=== PATIENT | female | born 1975 | race Caucasian/White ===

== ENCOUNTER 2022-01-03 12:53 | Outpatient (CLI) | payer OTHER, SELFPAY ==
--- NOTE | 2022-01-03 13:00 | CRLHL7_ITS ---
For Patients: As a result of the Century Cures Act, medical imaging exams and procedure reports are released immediately into your electronic medical record. You may view this report before your referring provider. If you have questions, please contact your health care provider. Indication: Paresthesias of the skin. Technique: Noncontrast sagittal T1, axial FLAIR, T2, diffusion weighted sequences are provided. No comparisons. Findings: The ventricles, sulci and gyri are normal size, shape and contour for age. The midline structures are centrally located with no evidence of shift. There are no suspicious intra or extra-axial fluid collections. No region of restricted diffusion. Expected flow voids in the cavernous carotids and basilar artery. Impression: 1. No radiographic evidence of acute intracranial abnormalities. Dictated by Brad Vee MD @ 01/03/2022 2:15:24 PM (Electronically Signed)
== END 2022-01-03 12:54 | disposition home or self-care (01) ==
LOC: MRI 12:56
PROVIDERS: PCP Family Medicine; Visit Provider Family Medicine
DX: R20.2 Paresthesia of skin (principal)
CPT/HCPCS: 70551

== ENCOUNTER 2022-05-26 09:57 | Outpatient (CLI) | payer OTHER, SELFPAY ==
[2022-05-26 12:43] LABS: Cholesterol* 218 mg/dL (90-199)
[2022-05-26 12:44] LABS: HDL Cholesterol* 80 mg/dL (>=50); LDL Cholesterol Calculated 128 mg/dL (<100); Triglycerides* 51 mg/dL (40-149)
[2022-06-01 01:19] LABS: Vitamin D, 1,25-Dihydroxy 42.7 pg/mL (19.9-79.3)
== END 2022-05-26 09:58 | disposition home or self-care (01) ==
PROVIDERS: PCP Family Medicine; Visit Provider Obstetrics & Gynecology
DX: Z01.419 Encounter for gynecological examination (general) (routine) without abnormal findings (principal); M85.80 Other specified disorders of bone density and structure, unspecified site; Z13.6 Encounter for screening for cardiovascular disorders; Z13.29 Encounter for screening for other suspected endocrine disorder; Z11.3 Encounter for screening for infections with a predominantly sexual mode of transmission
CPT/HCPCS: 80061; 82652; 84443

== ENCOUNTER 2022-11-08 14:47 | Outpatient (CLI) | payer OTHER, SELFPAY ==
--- NOTE | 2022-11-08 15:00 | CRLHL7_ITS ---
For Patients: As a result of the Century Cures Act, medical imaging exams and procedure reports are released immediately into your electronic medical record. You may view this report before your referring provider. If you have questions, please contact your health care provider. BILATERAL SCREENING MAMMOGRAM WITH COMPUTER-AIDED DETECTION AND TOMOSYNTHESIS TECHNIQUE: CC and MLO views were obtained. These mammographic images have been obtained using full-field digital technique. These mammographic images were interpreted with the benefit of computer-aided detection. Breast Tomosynthesis was used in this interpretation. COMPARISON FILM: 11/04/21, 11/01/20, 10/28/19. FINDINGS: There are scattered areas of fibroglandular density IMPRESSION: There is no radiographic evidence for malignancy. ASSESSMENT: BI-RADS Category 2: Benign RECOMMENDATION: Routine screening mammogram in 1 year. A lay language report of this examination will be provided to the patient. Alex Castillo M.D. Diagnostic Radiologist [email or web address] JARON/Dictated by: Alex Castillo MD @ 11/09/2022 12:03:00 PM (Electronically Signed)
--- NOTE | 2022-11-08 15:30 | CRLHL7_ITS ---
For Patients: As a result of the Century Cures Act, medical imaging exams and procedure reports are released immediately into your electronic medical record. You may view this report before your referring provider. If you have questions, please contact your health care provider. DXA BONE MINERAL DENSITY STUDY Current height (in): 66.0. Weight (lb): 130.0. Menopause age: 47. Ethnicity: White. Reason for exam: Osteopenia. 1. Have you had a previous hip or vertebral fracture? No. 2. Have you had any fractures during your adult life which did not result from significant trauma (e.g., auto accident)? No. 3. Did either of your parents have a hip fracture? No. 4. Do you smoke? No. 5. Have you ever taken Glucocorticoids? No. 6. Do you have rheumatoid arthritis? No. 7. Do you have secondary osteoporosis? No. 8. Do you drink 3 or more alcoholic drinks per day? No. 9. Are you being treated for osteoporosis? No. 10. Have you ever taken any of the following medications: Actonel, Evista, Fosamax, Miacalcin, Reclast, Boniva, Forteo, HRT (i.e. estrogen/hormone therapy), Protelos, Prolia, Vitamin D, Calcium, other ??? please specify. ANSWER: Yes, vitamin D, calcium, omega 3. 11. Do you have any of the following medical conditions: Anorexia or bulimia, asthma or emphysema, end stage renal disease, hyperparathyroidism, any seizure disorders, cancer, inflammatory bowel diseases, hysterectomy, other ??? please specify. ANSWER: No. 12. What was your maximum height (inches)? 67. 13. Do you perform weight bearing exercise regularly? Yes. 14. Do you regularly consume dairy products? Yes. 15. Do you drink caffeinated beverages? Yes. 16. At what age did your period start? 12. 17. Are you premenopausal? No. 18. How many full term pregnancies have you had? 4. 19. Have you ever missed your period for more than 6 months in a row (not including or menopause)? No. TECHNIQUE: Bone mineral density study was performed using the [email or web address]. FINDINGS: The results of the study expressed as bone mineral density (BMD) are as follows: Lumbar spine L1to L4: BMD: 0.793 g/cm2. T-score: -2.3. Z-score: -1.7. Neck Left: BMD: 0.772 g/cm2. T-score: -0.7. Z-score: -0.1. Right: BMD: 0.795 g/cm2. T-score: -0.5. Z-score: 0.1. Total Left: BMD: 0.830 g/cm2. T-score: -0.9. Z-score: -0.5. Right: BMD: 0.866 g/cm2. T-score: -0.6. Z-score: -0.2. IMPRESSION: Osteopenia. *Comparison exams done prior to 11/2019 were performed on different unit, [employer]. COMPARISON: Compared with scan of 01/08/2020, the bone mineral density has increased by 2.7 percent at the spine and increased by 5.9 percent at the hip. FRAX 10-year Fracture Risk Major Osteoporotic Fracture: 2.9 percent Hip Fracture: 0.1 percent Reported Risk Factors: [place] () Neck BMD = 0.772, BMI = 21.0 Alex Castillo M.D. Diagnostic Radiologist [email or web address] Transcribed: 2:30 am DW/Dictated by: Alex Castillo MD @ 11/09/2022 8:24:00 AM (Electronically Signed)
== END 2022-11-08 14:48 | disposition home or self-care (01) ==
LOC: MAMMO 14:47
PROVIDERS: PCP Family Medicine; Visit Provider Obstetrics & Gynecology
DX: Z12.31 Encounter for screening mammogram for malignant neoplasm of breast (principal); M85.80 Other specified disorders of bone density and structure, unspecified site
CPT/HCPCS: 77063; 77067; 77080

== ENCOUNTER 2023-07-25 10:02 | Outpatient (CLI) | payer OTHER, SELFPAY ==
--- NOTE | 2023-07-25 10:15 | US_ITS ---
INDICATION: INGUINAL FULLNESS AND PAIN. COMPARISON: NONE. TECHNIQUE: GRAYSCALE AND COLOR DOPPLER ULTRASOUND OF THE INGUINAL SOFT TISSUES PERFORMED BILATERALLY WITH AND WITHOUT VALSALVA. FINDINGS: SMALL BILATERAL INGUINAL HERNIAS ARE PRESENT. THE FASCIAL DEFECT MEASURES APPROXIMATELY 5 X 6 MM ON THE LEFT AND 3 X 4 MM ON THE RIGHT. NO ABNORMAL VASCULARITY. NO FLUID COLLECTION OR MASS. IMPRESSION: SMALL BILATERAL INGUINAL HERNIAS.
== END 2023-07-25 10:03 | disposition home or self-care (01) ==
PROVIDERS: PCP Family Medicine; Visit Provider Surgery
DX: R10.31 Right lower quadrant pain (principal); K40.90 Unilateral inguinal hernia, without obstruction or gangrene, not specified as recurrent; R10.32 Left lower quadrant pain
CPT/HCPCS: 76857

== ENCOUNTER 2023-08-31 10:21 | Outpatient (CLI) | payer OTHER, SELFPAY | END 2023-08-31 10:22 | disposition home or self-care (01) | LOC: LKVREF 10:22 | PROVIDERS: PCP Family Medicine; Visit Provider Family Medicine | DX: Z83.3 Family history of diabetes mellitus (principal); Z13.228 Encounter for screening for other metabolic disorders | CPT/HCPCS: 80048 ==

== ENCOUNTER 2023-09-04 07:51 | Day surgery (SDC) | payer OTHER, SELFPAY ==
[2023-09-04] VITALS (13 sets, daily range): BP systolic 101–120; BP diastolic 58–84; PULSE 70–107; RESP 14–16; TEMP 36.6–36.7; O2SAT 96–100; BMI 20.8
[2023-09-04] MEDS: LACTATED RINGERS 1000 ML 1,000 ML 100 ML IV (08:10)
[2023-09-04 08:16] LABS: Ur HCG Qualitative* Negative (Negative)
[2023-09-04] MEDS: SODIUM CHLORIDE 0.9 % (FLUSH) 10 ML SYRINGE IVF (08:16)
[2023-09-04] MEDS: CEFAZOLIN 2 GM INJ IVP (09:25)
[2023-09-04] MEDS: BUPIVACAINE 0.25% 30 ML 15 ML INJECTION (09:36)
--- NOTE | 2023-09-04 09:38 | SUR.OPER ---
PATIENT QUESTIONS ANSWERED SATISFACTORILY PREOPERATIVELY. PATIENT BROUGHT TO OR #4 PER CART. Patient positioned supine on OR #4 bed. The perioperative team supported arms bilaterally on arm boards for the intubation. BILATERAL ARMS TUCKED IN A NEUTRAL, PADDED POSITION AT PT. SIDES W/DRAW SHEET. Final approval of positioning by surgeon.
--- NOTE | 2023-09-04 09:59 | W.ANESCHARGE ---
Anesthesia Charges Start Date/Time Anesthesia Start Date: 09/04/23 Anesthesia Start Time: 09:15 Stop Date/Time Anesthesia Stop Date: 09/04/23 Anesthesia Stop Time: 11:20
--- NOTE | 2023-09-04 11:23 | P.GSOP_ITS ---
Operative Note Date of procedure: 09/04/23 Pre-op diagnosis: 1. Symptomatic left inguinal hernia and minimally symptomatic right inguinal hernia. Post-op diagnosis: 1. Direct left inguinal hernia with cord lipoma and small indirect left inguinal hernia. 2. Direct right inguinal hernia. Type of Procedure: 1. Laparoscopic bilateral inguinal hernia repair with mesh. Indications: 48-year-old female was seen in clinic for evaluation of left inguinal pain with strenuous activity. The pain usually lasted for 1-2 days and then spontaneously resolved. She did not notice a bulge in the inguinal canals. On clinical exam she had a well-healed scar in the lower abdomen. With the patient standing up and doing Valsalva are there was symmetric protrusion of the abdominal wall overlying the inguinal canals on the left and right. There was no bulge palpated that was reducable. Patient was referred for an ultrasound of bilateral inguinal canals with Valsalva. The ultrasound showed small bilateral inguinal hernias left larger than the right. Given patient's symptoms and her ultrasound findings, a laparoscopic inguinal hernia repair was recommended. The procedure was discussed in detail. The risks associated procedure including infection, bleeding, nerve pain, and hernia recurrence were all discussed with the patient, and she agreed to proceed. Procedure Description: After discussing the risks and benefits of the procedure, the patient signed informed consent.? The operative site was marked and the patient was brought to the operating room and placed on the operating table in supine position.? Care was taken to pad the patient's pressure points.?? The patient was then intubated by anesthesia.?? The operative site was then prepped and draped in the usual sterile fashion.? A time-out was then performed. An infraumbilical skin incision was made with a scalpel and subcutaneous tissues were dissected with electrocautery. Anterior sheath was incised with electrocautery and rectus muscle was retracted laterally. A 12 mm spacemaker dissector system was introduced into the incision and advanced over the posterior sheath. Preperitoneal space was dissected with manually insufflating air under direct visualization. Once the tissues were dissected, the balloon was deflated and removed.? A laparoscopic balloon was placed into preperitoneal space and balloon was inflated. Preperitoneal space was insufflated with air. We then placed two 5 mm ports suprapubically under direct visualization. Minimal bleeding was identified upon examination of preperitoneal space. This was coming from muscle that was scarred to the abdominal wall most likely due to patient's repeated C-sections. A small venous branch adjacent to the right inferior epigastrics had slow oozing. This was clipped with a 5 mm clip. ? The preperitoneal tissues were bluntly dissected with graspers.? The pubic bone was identified and? cleared from preperitoneal tissue.? Moderate amount of scar tissue was noted on the right side and more scar on the left side. On the left side abdominal muscle was attached to the abdominal wall and we worked around this muscle scar to dissect the left side. I first started on the right side. Inferior epigastrics on the right?side were retracted towards the abdominal wall.??Tissues of the right preperitoneal space were dissected bluntly. Given patient's body habitus there was not an abundance of preperitoneal fat. The right round ligament was identified and was circumferentially dissected. The peritoneum on the right side was identified and there was no evidence of indirect inguinal hernia. There was a small direct inguinal hernia noted. The right round ligament was then clipped with 2 5 mm clips proximally and distally. The clips however did not go across the entire round ligament. Half of the round ligament was incised with hot scissors and additional clips were placed on the round ligament to prevent bleeding. The division of the round ligament was then completed with hot scissors.? When adequate space was developed for mesh placement, I then proceeded with dissection on the left side. Dissection in the left side was more difficult because the blunt dissection with the balloon did not create an adequate preperitoneal space. The preperitoneal space was dissected bluntly with Kian graspers. The left inferior epigastrics were finally identified and were retracted towards the abdominal wall. The preperitoneal space on the left was then dissected bluntly until the round ligament was identified. The round ligament was then circumferentially dissected and peritoneum was noted to be attached to the round ligament. There was evidence of small indirect inguinal hernia. This peritoneum was then reflected cranially and during this blunt dissection of peritoneum off the round ligament, peritoneal opening was noted. This was clipped with 5 mm clips. A small cord lipoma was noted in the inguinal canal and that was reduced bluntly. The round ligament was then clipped with 5 mm clips proximally and distally and divided with hot scissors. When the left preperitoneal space was dissected for mesh placement, 3D medium- sized Bard mesh was placed into the left preperitoneal space. This was secured in place with tacks medially but no tacks were applied laterally. Similarly, the right-sided 3DMax mesh was placed in the right preperitoneal space and secured in place medially with tacks. Additional local anesthetic was injected into the preperitoneal space. The space was deflated under direct visualization and mesh appeared to be still lying in a good position. The ports were then removed. Patient's abdomen was somewhat tympanic. This is most likely due to pneumoperitoneum created from a peritoneal opening during the dissection. The posterior sheath and peritoneum were grasped with Roslyn clamps and the peritoneum was incised once Metzenbaum scissors. Pneumoperitoneum was then reduced. This small peritoneal opening was then closed with a [id number]-ithsl 3-0 Vicryl suture. Anterior sheath was then closed with a running 0-0 vicryl suture. Skin was closed with 4-0 monocryl using subcuticular stitch. Steri strips were applied over the laparoscopic?incisions. ? All counts were correct at the end of the case. Patient tolerated the procedure well and was transferred to PACU without any complications. Findings: Small hernias bilaterally. Moderate amount of scar tissue noted due to patient's previous C-sections especially in the left. Implants: 3D Bard mesh bilaterally Anesthesia: GETA Surgeon: Reji Delcid MD Estimated blood loss (mL): 10 Condition: stable Disposition: PACU
--- NOTE | 2023-09-04 11:24 | W.ANESCHARGE ---
Anesthesia Charges Start Date/Time Anesthesia Start Date: 09/04/23 Anesthesia Start Time: 09:15 Stop Date/Time Anesthesia Stop Date: 09/04/23 Anesthesia Stop Time: 11:20
[2023-09-04] MEDS: fentaNYL 100 MCG/2 ML inj 50 MCG IVP (11:37)
[2023-09-04] MEDS: HYDROCODONE-ACETAMIN 5-325 MG 1 TAB PO (12:15)
[2023-09-04] MEDS: MEPERIDINE 25 MG/ML INJ 12.5 MG IVP (12:25)
[2023-09-04] MEDS: hydrOXYzine pamoate 25 MG CAPSULE PO (12:55)
--- NOTE | 2023-09-08 10:08 | PC.NURSE ---
Patient called M/S with following concern: Reports having hernia surgery on Sunday, notes swelling on right side of belly button that started 2 days ago. Denies redness, drainage, or pain. Has a mild, overall boating but does report passing gas and having normal bowel movements. Slight nausea initially after surgery when stomach was empty. Also reports mild lower back pain, denies urinary symptoms. Reported this to Dr. Sarabia. Directed to explain to patient that this swelling is not unexpected. Patient to come to ED if develops fever, nausea/vomiting. If still having concerns on Sunday, to call clinic and be seen. Dora understands this plan and is comfortable with it.
== END 2023-09-04 13:27 | disposition home or self-care (01) ==
PROVIDERS: PCP Family Medicine; Visit Provider Surgery
PROC: (CPT 49650; principal; 2023-09-04 09:15)
DX: K40.20 Bilateral inguinal hernia, without obstruction or gangrene, not specified as recurrent (principal)
CPT/HCPCS: 49650; 00830; 00840; 00860; 81025; A9270; C1781; J0330; J0665; J0690; J1100; J2175; J2250; J2405; J2704; J2710; J3010; J7120

== ENCOUNTER 2023-11-12 14:53 | Outpatient (CLI) | payer OTHER, SELFPAY ==
--- OUTSIDE RECORDS SUMMARY | 2023-11-12 14:56 | XMS_ITS | Referral Summary ---
Author Organization [facility] Address [address] [facility] [place] [address] Care Team Providers Care Manager Statistics Name Role Phone Eb Wheeler MD Primary Care Provider [phone] Allergies No known active allergies Medications Medication Sig Dispensed Refills Start Date End Date Status HYDROcodone-acetamin ophen (NORCO) 5-325 MG per tablet Take 1 tablet by mouth every 6 hours as needed for pain 12 tablet 01/29/2018 Active ibuprofen (ADVIL/MOTRIN) 800 MG tablet Take 1 tablet (800 mg) by mouth every 8 hours as needed for moderate pain 30 tablet 01/29/2018 Active Social History Tobacco Use Types Packs/Day Years Used Date Smoking Tobacco: Never Alcohol Use Standard Drinks/Week Comments Yes 0 (1 standard drink = 0.6 oz pur e alcohol) Sex and Gender Information Value Date Recorded Sex Assigned at Not on file Gender Identity Not on file Sexual Orientation Not on file Last Filed Vital Signs Vital Sign Reading Time Taken Comments Blood Pressure 118/78 03/05/2019 3:30 PM CDT Pulse 72 03/05/2019 3:30 PM CDT Temperature 36.9 ??C (98.5 ??F) 03/05/2019 1:35 PM CD T Respiratory Rate 18 03/05/2019 3:30 PM CDT Oxygen Saturation 98% 03/05/2019 3:30 PM CDT Inhaled Oxygen Concentration - - Weight 56.7 kg (125 lb) 03/05/2019 1:35 PM CDT Height 167.6 cm (5' 6) 03/05/2019 1:35 PM CDT Body Mass Index 20.18 03/05/2019 1:35 PM CDT Plan of Treatment Not on file Care Teams Manager Statistics Relationship Specialty Start Date End Date Eb Wheeler MD PCP - General Family Practice 01/29/18
--- OUTSIDE RECORDS SUMMARY | 2023-11-12 14:56 | XMS_ITS | Clinical Summary ---
Author Organization [facility] Address [address] [place] [address] Care Team Providers Care Floor Mechanic Name Role Phone Eb Wheeler MD Primary Care Provider [phone] Allergies No known active allergies Medications Medication [...] of Treatment Not on file Care Teams Floor Mechanic Relationship Specialty Start Date End Date Eb Wheeler MD PCP - General Family Practice 01/29/18
--- OUTSIDE RECORDS SUMMARY | 2023-11-12 14:56 | XMS_ITS | Clinical Summary ---
Author Organization [facility] Address [address] [place] [address] Care Team Providers Care Self Propelled Mining Machine Operator Name Role Phone Found, No Pcp MD Primary Care Provider Unavailab le Source Comments You are receiving this document as you are listed as the primary care provider,follow-up provider, or the patient has been referred to you for consultation.This is in compliance with the Medicare and[facility] EHR Incentive Program,which states Providers who transition their patient to another setting of careor provider of care or refers their patient to another provider of care shouldprovide summary care record for each transition of care or referral. [facility] Allergies No known active allergies Medications No known medications Active Problems No known active problems Social History Tobacco Use Types Packs/Day Years Used Date Smoking Tobacco: Never Assessed Sex and Gender Information Value Date Recorded Sex Assigned at Not on file Gender Identity Not on file Sexual Orientation Not on file Last Filed Vital Signs Vital Sign Reading Time Taken Comments Blood Pressure - - Pulse - - Temperature - - Respiratory Rate - - Oxygen Saturation - - Inhaled Oxygen Concentration - - Weight 51.3 kg (113 lb) 02/06/2018 1:03 PM CDT Height 167.6 cm (5' 6) 02/06/2018 1:03 PM CDT Body Mass Index 18.24 02/06/2018 1:03 PM CDT Plan of Treatment Health Maintenance Due Date Last Done Comments Cervical Cancer Screening Due 1975 Colon Cancer Screening Plan Due 1975 Hep C Screening (Preventive Services) 1975 HIV Screening (Preventive Services) 1991 Adult Preventive Visit 1993 DTaP/Tdap/Td (1 - Tdap) 1994 HepB (1) 1994 Cholesterol 02/19/2020 COVID-19 Vaccine ( - 2022-2 4 season) 2023 Influenza (Season Ended) 2024 Zoster/Shingles (1 of 2) 2025 HepA Aged Out No longer eligi ble based on patient's age to complete this topic Hib Aged Out No longer eligi ble based on patient's age to complete this topic IPV (Polio) Aged Out No longer eligi ble based on patient's age to complete this topic MCV4 Aged Out No longer eligi ble based on patient's age to complete this topic Pneumococcal Aged Out No longer eligi ble based on patient's age to complete this topic Care Teams Self Propelled Mining Machine Operator Relationship Specialty Start Date End Date Found, No Pcp, [address] [place] [address] PCP - General 02/04/18
--- OUTSIDE RECORDS SUMMARY | 2023-11-12 14:56 | XMS_ITS | Clinical Summary ---
Author Organization [facility] Address [place], [place] [address] Care Team Providers Care Lens Polisher Name Role Phone Annabella Bob MD Primary Care Provider Ganesh urbina Social History Tobacco Use Types Packs/Day Years Used Date Smoking Tobacco: Never Assessed Sex and Gender Information Value Date Recorded Sex Assigned at Not on file Gender Identity Not on file Sexual Orientation Not on file Plan of Treatment Health Maintenance Due Date Last Done Comments Tdap 1986 Depression screening for age 12+ 1987 HIV for age 15-65 1990 BMI (ht and wt on same day) for age 18+ 1993 Hepatitis C screening for age 18-79 1993 Tetanus booster 1995 Colonoscopy through age 75 02/19/2020 Lipids for age 45-75 02/19/2020 Mammogram for age 45-75 02/19/2020 COVID-19 vaccine series ( season) 2023 Influenza for age 9-49 02/10/2024 Pap test for age 21-65 05/26/2025 , 05/26/2022, 08/02/2017, Additional history exists Pneumococcal series for age 6-64 Aged Out No longer eligible based on patient's age to complete this topic Procedures Procedure Name Priority Date/Time Associated Diagnosis Comments HPV THIN PREP Routine 05/26/2022 10:15 AM RPG PROGRAMMER from Last 3 Months or Most Recently Relevant to Health Maintenance Results * HPV HIGH RISK (05/26/2022 10:15 AM RPG PROGRAMMER) TYPE 16 Negative Negative 05/31/2022 11:29 AM RPG [facility]GRAMMER [facility] TYPE 18 Negative Negative 05/31/2022 11:29 AM RPG PROGRAMMER [facility] OTHER HIGH RISK TYPES Negative Negative 05/31/2022 11:29 AM RPG PROGRAMMER [facility] Other (Cervical) 05/26/2022 10:15 AM RPG PROGRAMMER 05/29/2022 12:00 PM RPG PROGRAMMER Narrative [facility] - 05/31/2022 11:29 AM RPG PROGRAMMER HPV types 16, 18, 31, 33, 35, 39, 45, 51, 52, 56, 58, 59, 66 and 68 DNA were undetectable or below the pre-set threshold. Methodology: Sara Gunnar 4800 HPV Test Mahsa Wheatley MD MICROBIOLOGY [facility] [address] [place] [address], from Last 3 Months or Most Recently Relevant to Health Maintenance Care Teams Lens Polisher Relationship Specialty Start Date End Date Annabella Bob MD PCP - General Family Practice 06/29/16
--- NOTE | 2023-11-12 15:00 | CRLHL7_ITS ---
For Patients: As a result of the Century Cures Act, medical imaging exams and procedure reports are released immediately into your electronic medical record. You may view this report before your referring provider. If you have questions, please contact your health care provider. BILATERAL SCREENING MAMMOGRAM WITH COMPUTER-AIDED DETECTION AND TOMOSYNTHESIS TECHNIQUE: CC and MLO views were obtained. These mammographic images have been obtained using full-field digital technique. These mammographic images were interpreted with the benefit of computer-aided detection. Breast Tomosynthesis was used in this interpretation. COMPARISON FILM: 11/08/22, 11/04/21, 11/01/20. FINDINGS: The breasts are heterogeneously dense, which may obscure small masses. IMPRESSION: There is no radiographic evidence for malignancy. ASSESSMENT: BI-RADS Category 1: Negative RECOMMENDATION: Routine screening mammogram in 1 year. A lay language report of this examination will be provided to the patient. Alex Castillo M.D. Diagnostic Radiologist [email or web address] SP/Dictated by: Alex Castillo MD @ 11/13/2023 9:01:00 AM (Electronically Signed)
== END 2023-11-12 14:54 | disposition home or self-care (01) ==
LOC: MAMMO 14:54
PROVIDERS: PCP Family Medicine; Visit Provider Family Medicine
DX: Z12.31 Encounter for screening mammogram for malignant neoplasm of breast (principal); R92.2 Inconclusive mammogram
CPT/HCPCS: 77063; 77067

== ENCOUNTER 2023-11-27 09:56 | Outpatient (CLI) | payer OTHER, SELFPAY ==
--- OUTSIDE RECORDS SUMMARY | 2023-11-27 09:59 | XMS_ITS | Clinical Summary ---
Author Organization [facility] Address [address] [facility] [facility] [place] [address] Care Team Providers Care Lap Welder Name Role Phone Eb Wheeler MD Primary Care Provider [phone] Allergies No known active allergies Medications Medication [...] of Treatment Not on file Care Teams Lap Welder Relationship Specialty Start Date End Date Eb Wheeler MD PCP - General Family Practice 01/29/18
--- OUTSIDE RECORDS SUMMARY | 2023-11-27 09:59 | XMS_ITS | Clinical Summary ---
Author Organization [facility] Address [address] [place] [address] Care Team Providers Care Transport Analyst Name Role Phone Found, No Pcp MD Primary Care Provider Unavailab le Source Comments You are receiving this document as you are listed as the primary care provider,follow-up provider, or the patient has been referred to you for consultation.This is in compliance with the Medicare and[facility] EHR Incentive Program,which states Providers who transition [...] age to complete this topic Care Teams Transport Analyst Relationship Specialty Start Date End Date Found, No Pcp, [address] [place] [address] PCP - General 02/04/18
--- OUTSIDE RECORDS SUMMARY | 2023-11-27 09:59 | XMS_ITS | Referral Summary ---
Author Organization [facility] Address [address] [facility] [place] [address] Care Team Providers Care Associate Loan Officer Name Role Phone Eb Wheeler MD Primary Care Provider [phone] Allergies No known active allergies Medications Medication [...] of Treatment Not on file Care Teams Associate Loan Officer Relationship Specialty Start Date End Date Eb Wheeler MD PCP - General Family Practice 01/29/18
--- OUTSIDE RECORDS SUMMARY | 2023-11-27 09:59 | XMS_ITS | Clinical Summary ---
Author Organization [facility] s & [facility] Address [place], [place] [address] Care Team Providers Care Baster Hand Name Role Phone Annabella Bob MD Primary [...] HPV THIN PREP Routine 05/26/2022 10:15 AM LIFESTYLE CONSULTANT from Last 3 Months or Most Recently Relevant to Health Maintenance Results * HPV HIGH RISK (05/26/2022 10:15 AM LIFESTYLE CONSULTANT) TYPE 16 Negative Negative 05/31/2022 11:29 AM LIFESTYLE CONSULTANT [facility] TYPE 18 Negative Negative 05/31/2022 11:29 AM LIFESTYLE CONSULTANT [facility] OTHER HIGH RISK TYPES Negative Negative 05/31/2022 11:29 AM LIFESTYLE CONSULTANT [facility] Other (Cervical) 05/26/2022 10:15 AM LIFESTYLE CONSULTANT 05/29/2022 12:00 PM LIFESTYLE CONSULTANT Narrative [facility] - 05/31/2022 11:29 AM LIFESTYLE CONSULTANT HPV types 16, 18, 31, 33, 35, 39, 45, 51, 52, 56, 58, 59, 66 and 68 DNA were undetectable or below the pre-set threshold. Methodology: Sara Gunnar 4800 HPV Test Mahsa Wheatley MD MICROBIOLOGY [facility] [address] [place] [address], from Last 3 Months or Most Recently Relevant to Health Maintenance Care Teams Baster Hand Relationship Specialty Start Date End Date Annabella Bob MD PCP - General Family Practice 06/29/16
== END 2023-11-27 09:57 | disposition home or self-care (01) ==
PROVIDERS: PCP Family Medicine; Visit Provider Obstetrics & Gynecology
DX: Z13.228 Encounter for screening for other metabolic disorders (principal); Z13.220 Encounter for screening for lipoid disorders; Z13.29 Encounter for screening for other suspected endocrine disorder; Z13.21 Encounter for screening for nutritional disorder
CPT/HCPCS: 80048; 80061; 82306; 84443

== ENCOUNTER 2024-12-02 16:16 | Outpatient (CLI) | payer OTHER, SELFPAY ==
--- NOTE | 2024-12-02 16:40 | MM_ITS ---
Patient: JOSE ALBERTO BROWNING Facility:?[facility] Patient ID:?[id number] Site Patient ID:?[id number]. Site :?[id number] Study:?XRay-Breast 3D Colin SCREENING-12/02/2024 5:59:54 PM Ordering Physician:?Liam Roe Final Report: INDICATION: BILATERAL SCREENING MAMMOGRAM, ASYMPTOMATIC 49 Y/O FEMALE COMPARISON: 11/12/2023, 11/08/2022, 11/04/2021 TECHNIQUE: Digital mammogram in CC and MLO projections including computer-aided detection (CAD) and tomosynthesis. BREAST COMPOSITION: There are scattered areas of fibroglandular density. FINDINGS: No suspicious findings. ASSESSMENT: BI-RADS 1 Negative RECOMMENDATION: Annual screening mammogram. A lay language report of this examination will be provided to the patient. Dictated by: Alex Castillo MD @ 12/04/2024 10:21:49 Signed by:?Alex Castillo MD @12/04/2024 10:21:49 AM (Electronic Signature)
--- OUTSIDE RECORDS SUMMARY | 2024-12-03 00:50 | XMS_ITS | Clinical Summary ---
Author Organization [facility] Address [address] [place] [address] Care Team Providers Care Agile Scrum Coach Name Role Phone Found, No Pcp MD Primary Care Provider Unavailab le Source Comments You are receiving this document as you are listed as the primary care provider,follow-up provider, or the patient has been referred to you for consultation.This is in compliance with the Medicare andMedicaid EHR Incentive Program,which states Providers who transition [...] Years Used Date Smoking Tobacco: Never Assessed Comments Unknown Sex and Gender Information Value Date Recorded Sex Assigned at Not on file Legal Sex Female 1:06 PM CDT Gender Identity Not on file Sexual Orientation [...] 1975 Hep C Screening (Preventive Services) 1975 Mammogram 1975 HIV Screening (Preventive Services) 1991 Adult Preventive Visit 1993 DTaP/Tdap/Td Vaccine (1 - Tdap) 1994 HepB Vaccine (1) 1994 Cholesterol 02/19/2020 COVID-19 Vaccine (1 - 2023-2 5 season) 2024 Influenza Vaccine (Season Ended) 2025 Zoster/Shingles Vaccine (1 of 2) 2025 HepA Vaccine Aged Out No longer eligi ble based on patient's age to complete this topic Hib Vaccine Aged Out No longer eligi ble based on patient's age to complete this topic IPV (Polio) Vaccine Aged Out No longe r eligible based on patient's age to complete this topic MCV4 Vaccine Aged Out No longer eligi ble based on patient's age to complete this topic Meningococcal B Vaccine Aged Out No l onger eligible based on patient's age to complete this topic Pneumococcal Vaccine Aged Out No long er eligible based on patient's age to complete this topic Insurance [address] [place] [id number] SELF INSURED [address] [place] [id number] Care Teams Agile Scrum Coach Relationship Specialty Start Date End Date Found, No [facility] [address] [facility] [id number] PCP - General 02/04/18
--- OUTSIDE RECORDS SUMMARY | 2024-12-03 00:50 | XMS_ITS | Clinical Summary ---
Author Organization [facility] Address [address] [place] [id number] Care Team Providers Care Document Review Attorney Name Role Phone Annabella Bob MD Primary Care Provider Ganesh urbina Social History Tobacco Use Types Packs/Day Years Used Date Smoking Tobacco: Never Assessed Comments Unknown Sex and Gender Information Value Date Recorded Sex Assigned at Not on file Legal Sex Female 8:11 PM DESIGN TECHNICIAN Gender Identity Not on file Sexual Orientation Not on file Plan of Treatment Health Maintenance Due Date Last Done Comments Tdap 1986 Depression screening for age 12+ 1987 HIV for age 15-65 1990 BMI (ht and wt on same day) for age 18+ 1993 Hepatitis C screening for age 18-79 1993 Hepatitis B series for 19+ (1 of 3 - 19+ 3-dose series) 1994 Tetanus booster 1995 Colonoscopy through age 75 02/19/2020 Lipids for age 45-75 02/19/2020 Mammogram for age 45-75 02/19/2020 COVID-19 vaccine series ( season) 2024 Influenza Vaccine (Season Ended) 2025 Pap test for age 21-65 05/26/2025 , 05/26/2022, 08/02/2017, Additional history exists Pneumococcal series for age 6-49 Aged Out No longer eligible based on patient's age to complete this topic Procedures Procedure Name Priority Date/Time Associated Diagnosis Comments HPV HIGH RISK Routine 05/26/2022 10:15 AM DESIGN TECHNICIAN from Last 3 Months or Most Recently Relevant to Health Maintenance Results * HPV HIGH RISK (05/26/2022 10:15 AM DESIGN TECHNICIAN) TYPE 16 Negative Negative 05/31/2022 11:29 AM DESIGN TECHNICIAN [facility] TYPE 18 Negative Negative 05/31/2022 11:29 AM DESIGN TECHNICIAN [facility] OTHER HIGH RISK TYPES Negative Negative 05/31/2022 11:29 AM DESIGN TECHNICIAN [facility] Other (Cervical) 05/26/2022 10:15 AM DESIGN TECHNICIAN 05/29/2022 12:00 PM DESIGN TECHNICIAN Narrative [facility] - 05/31/2022 11:29 AM DESIGN TECHNICIAN HPV types 16, 18, 31, 33, 35, 39, 45, 51, 52, 56, 58, 59, 66 and 68 DNA were undetectable or below the pre-set threshold. Methodology: Sara Gunnar 4800 HPV Test us Mahsa Wheatley MD MICROBIOLOGY Final Resu lt [facility] [address] [place] [address], [place] from Last 3 Months or Most Recently Relevant to Health Maintenance Insurance [place] [id number] Care Teams Document Review Attorney Relationship Specialty Start Date End Date Annabella Bob MD PCP - General Family Practice 06/29/16
--- OUTSIDE RECORDS SUMMARY | 2024-12-03 00:50 | XMS_ITS | Clinical Summary ---
Author Organization [facility] Address [address] [facility] [place] [address] Care Team Providers Care Tribunal Member Name Role Phone Eb Wheeler MD Primary Care Provider Allergies No known active allergies Medications HYDROcodone-colin taminophen (NORCO) 5-325 MG per tablet Take 1 [...] drink = 0.6 oz pur e alcohol) Comments No Sex and Gender Information Value Date Recorded Sex Assigned at Not on file Legal Sex Female 2:25 PM CDT Gender Identity Not on file Sexual Orientation Not on file Last Filed Vital Signs Vital Sign Reading Time Taken Comments Blood Pressure 118/78 03/05/2019 3:30 PM CDT Pulse 72 03/05/2019 3:30 PM CDT Temperature 36.9 C (98.5 F) 03/05/2019 1:35 PM CDT Respiratory Rate 18 03/05/2019 3:30 PM CDT Oxygen Saturation 98% 03/05/2019 3:30 PM CDT Inhaled Oxygen Concentration - - Weight 56.7 kg (125 lb) 03/05/2019 1:35 PM CDT Height 167.6 cm (5' 6) 03/05/2019 1:35 PM CDT Body Mass Index 20.18 03/05/2019 1:35 PM CDT Plan of Treatment Not on file Insurance [employer] Care Teams Tribunal Member Relationship Specialty Start Date End Date Eb Wheeler MD PCP - General Family Practice 01/29/18
== END 2024-12-02 16:17 | disposition home or self-care (01) ==
LOC: MAMMO 16:17
PROVIDERS: PCP Family Medicine; Visit Provider Family Medicine
DX: Z12.31 Encounter for screening mammogram for malignant neoplasm of breast (principal)
CPT/HCPCS: 77063; 77067

== ENCOUNTER 2024-12-31 09:42 | Outpatient (CLI) | payer OTHER, SELFPAY | END 2024-12-31 09:43 | disposition home or self-care (01) | PROVIDERS: PCP Family Medicine; Visit Provider Obstetrics & Gynecology | DX: M85.80 Other specified disorders of bone density and structure, unspecified site (principal); Z83.49 Family history of other endocrine, nutritional and metabolic diseases; Z13.29 Encounter for screening for other suspected endocrine disorder; Z13.6 Encounter for screening for cardiovascular disorders | CPT/HCPCS: 80048; 80061; 82306; 82670; 84439; 84443; 84481 ==